=== PATIENT | male | born 2000 | race African-American/Black ===

== ENCOUNTER 2020-09-13 20:35 | Emergency (ER) | payer MEDICAID ==
[~2020-09-13] VITALS: Ht 188 cm; Wt 69.2 kg
[2020-09-13 20:40] VITALS: BP 112/64
[2020-09-13 22:03] LABS: CLARITY URINE CLEAR (CLEAR); COLOR URINE YELLOW (YELLOW); KETONES URINE TRACE (NEGATIVE); LEUKOCYTE ESTERASE URINE TRACE (NEGATIVE); NITRITE URINE NEGATIVE (NEGATIVE); OCCULT BLOOD URINE NEGATIVE (NEGATIVE); PH URINE 5.5 (4.5-8.0); PROTEIN URINE NEGATIVE (NEGATIVE); SPECIFIC GRAVITY URINE 1.015 (1.005-1.030); UROBILINOGEN URINE 0.2 E.U./dL (0.2-1.0)
[2020-09-13] MEDS ORDERED: HYDR25SU37 RC (22:10)
== END 2020-09-13 22:33 | disposition home or self-care (01) ==
LOC: ER 20:35
DX: K60.2 Anal fissure, unspecified (principal)
CPT/HCPCS: 81003; 87591; 99283